=== PATIENT | female | born 1990 | race Caucasian/White ===

== ENCOUNTER 2021-06-24 05:01 | Inpatient (IN) | payer BC ==
[2021-06-24] MEDS ORDERED: Sodium Chloride 0.9% 10 ML Syringe FLUSH PRN (05:33)
[2021-06-24] MEDS ORDERED: Sodium Chloride 0.9% 10 ML SDV IV PRN (05:33)
[2021-06-24] MEDS ORDERED: Citric Acid/Sodium Citrate Solution 30 ML Cup PO ONE (05:33)
[2021-06-24] MEDS ORDERED: ceFAZolin 2 GM in Premix Bag 1 BAG IV ONE (05:33)
[2021-06-24] MEDS ORDERED: Sodium Chloride 0.9% 2.5 ML Syringe FLUSH PRN (05:33)
[2021-06-24] MEDS: Lactated Ringers 1,000 ML IV SCH ×3 (05:40→10:04)
[2021-06-24] MEDS ORDERED: Oxytocin/0.9 % Sodium Chloride 30 UNIT/500 ML BAG IV SCH (05:45)
[2021-06-24] MEDS ORDERED: fentaNYL 100 MCG/2 ML SDV ONE (07:31)
[2021-06-24] MEDS ORDERED: Morphine PF 10 MG/10 ML SDV ONE (07:32)
[2021-06-24] MEDS ORDERED: Oxytocin 10 Units/1 ML SDV ONE (07:36)
[2021-06-24] MEDS ORDERED: Ketorolac 30 MG/ML SDV ONE (07:36)
[2021-06-24] MEDS ORDERED: Ondansetron 4 MG/2 ML SDV ONE (07:36)
--- NOTE | 2021-06-24 07:51 | PCM.PREANE ---
Preanesthetic Assessment - Anesthesia/Transfusion/Family Hx Anesthesia History: Prior Anesthesia Without Reaction Family History of Anesthesia Reaction: No Transfusion History: No Prior Transfusion(s) - Review of Systems General: No Symptoms Pulmonary: No Symptoms Cardiovascular: No Symptoms Gastrointestinal: No Symptoms Neurological: No Symptoms Other: Reports: None - Physical Assessment NPO Status Date: 06/24/21 NPO Status Time: 00:00 Height: 5 ft Weight: 179 lb ASA Class: 2 Mental Status: Alert & Oriented x3 Airway Class: Mallampati = 3 Dentition: Reports: Normal Dentition ROM/Head Extension: Full Lungs: Clear to Auscultation, Normal Respiratory Effort Cardiovascular: Regular Rate, Regular Rhythm - Lab Values: Laboratory Last Values WBC 13.28 K/uL (4.0-11.0) H 06/24/21 05:25 RBC 4.19 M/uL (4.30-5.90) L 06/24/21 05:25 Hgb 11.8 g/dL (12.0-16.0) L 06/24/21 05:25 Hct 36.1 % (36.0-46.0) 06/24/21 05:25 MCV 86.2 fL (80.0-98.0) 06/24/21 05:25 MCH 28.2 pg (27.0-32.0) 06/24/21 05:25 MCHC 32.7 g/dL (31.0-37.0) 06/24/21 05:25 RDW Std Deviation 43.6 fl (28.0-62.0) 06/24/21 05:25 RDW Coeff of Mercedes 14 % (11.0-15.0) 06/24/21 05:25 Plt Count 284 K/uL (150-400) 06/24/21 05:25 MPV 9.80 fL (7.40-12.00) 06/24/21 05:25 Nucleated RBC % 0.0 /100WBC 06/24/21 05:25 Nucleated RBCs # 0 K/uL 06/24/21 05:25 Blood Type O NEGATIVE 06/24/21 05:25 Antibody Screen POSITIVE 06/24/21 05:25 Antibody Identification Anti-D 06/24/21 05:25 - Allergies Allergies/Adverse Reactions: Allergies Allergy/AdvReac Type Severity Reaction Status Date / Time No Known Allergies Allergy Verified 06/18/21 08:18 - Blood Blood Available: Yes Product(s) Available: PRBC, FFP, Platelets - Anesthesia Plan Pre-Op Medication Ordered: None - Acknowledgements Anesthesia Type Planned: Spinal Pt an Appropriate Candidate for the Planned Anesthesia: Yes Alternatives and Risks of Anesthesia Discussed w Pt/Guardian: Yes Pt/Guardian Understands and Agrees with Anesthesia Plan: Yes PreAnesthesia Questionnaire - Past Health History Medical/Surgical History: Denies Medical/Surgical History HEENT History: Reports: Other (See Below) Other HEENT History: upper retainer permanent for front teeth gap Cardiovascular History: Reports: None Respiratory History: Reports: Other (See Below) Other Respiratory History: 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, not present any longer Gastrointestinal History: Reports: Hemorrhoids, Other (See Below) Other Gastrointestinal History: hx of hemorrhoid not current Genitourinary History: Reports: None CHIEF OPERATING OFFICER History: Reports: , Other (See Below) Other OB/BYN History: hx of abnormal pap smear Musculoskeletal History: Reports: Fracture, Other (See Below) Other Musculoskeletal History: hip dysplagia, hx of fx left upper arm as a child Neurological History: Reports: Head Trauma, Seizure, Other (See Below) Other Neuro History: seizure as a child, dropped on head prior to seizure Psychiatric History: Reports: Other (See Below) Other Psychiatric History: dyslexia. Endocrine/Metabolic History: Reports: Diabetes, Gestational Hematologic History: Reports: None Immunologic History: Reports: None Oncologic (Cancer) History: Reports: None Dermatologic History: Reports: Other (See Below) Other Dermatologic History: shingles at age 9 y.o. - Infectious Disease History Infectious Disease History: Reports: Chicken Pox, Human Papilloma Virus (HPV), Shingles - Past Surgical History Head Surgeries/Procedures: Reports: None HEENT Surgical History: Reports: Oral Surgery, Other (See Below) Other HEENT Surgeries/Procedures: [place] teeth removal, and relignment of one adult tooth Cardiovascular Surgical History: Reports: None Respiratory Surgical History: Reports: None GI Surgical History: Reports: None Female Surgical History: Reports: None Endocrine Surgical History: Reports: None Neurological Surgical History: Reports: None Musculoskeletal Surgical History: Reports: None Oncologic Surgical History: Reports: None Dermatological Surgical History: Reports: None - SUBSTANCE USE Tobacco Use Status *Q: Never Tobacco User Second Hand Smoke Exposure: No Recreational Drug Use History: No - HOME MEDS Home Medications: Home Meds Pnv No.95/Ferrous Fum/Folic AC [ Vitamin Tablet] 1 tab PO DAILY 06/18/21 [History] - CURRENT (IN HOUSE) MEDS Current Meds: Current Medications Oxytocin/Sodium Chloride (Oxytocin 30 Unit/500 Ml-Ns) 30 unit in 500 mls @ 250 mls/hr IV TITRATE EILEEN Lactated Ringer's (Ringers, Lactated) 1,000 mls @ 500 mls/hr IV BOLUS EILEEN Last Admin: 06/24/21 06:50 Dose: 999 mls/hr Documented by: Sodium Chloride (Sodium Chloride 0.9% 10 Ml Syringe) 10 ml FLUSH ASDIRECTED PRN PRN Reason: Keep Vein Open Sodium Chloride (Sodium Chloride 0.9% 2.5 Ml Syringe) 2.5 ml FLUSH ASDIRECTED PRN PRN Reason: Keep Vein Open Sodium Chloride (Sodium Chloride 0.9% 10 Ml Sdv) 10 ml IV ASDIRECTED PRN PRN Reason: IV Use Discontinued Medications Citric Acid/Sodium Citrate (Citric Acid/Sodium Citrate Solution 30 Ml Cup) 30 ml PO ONETIME ONE Stop: 06/24/21 05:34 Fentanyl (Fentanyl 100 Mcg/2 Ml Sdv) Confirm Administered Dose 100 mcg .ROUTE .STK-MED ONE Stop: 06/24/21 07:32 Cefazolin Sodium/Dextrose 2 gm (/ Premix) 50 mls @ 100 mls/hr IV ONETIME ONE Stop: 06/24/21 06:02 Ketorolac Tromethamine (Ketorolac 30 Mg/Ml Sdv) Confirm Administered Dose 30 mg .ROUTE .STK-MED ONE Stop: 06/24/21 07:37 Miscellaneous Medication (Phenylephrine Hcl In 0.9% Nacl 1 Mg/10 Ml Syringe) Confirm Administered Dose 1 mg .ROUTE .STK-MED ONE Stop: 06/24/21 07:37 Morphine Sulfate (Morphine Pf 10 Mg/10 Ml Sdv) Confirm Administered Dose 10 mg .ROUTE .STK-MED ONE Stop: 06/24/21 07:33 Ondansetron HCl (Ondansetron 4 Mg/2 Ml Sdv) Confirm Administered Dose 4 mg .ROUTE .STK-MED ONE Stop: 06/24/21 07:37 Oxytocin (Oxytocin 10 Units/1 Ml Sdv) Confirm Administered Dose 30 unit .ROUTE .[facility]-MED ONE Stop: 06/24/21 07:37
[2021-06-24] MEDS ORDERED: ceFAZolin 1 GM Vial ONE ×2 (07:52→12:30)
--- NOTE | 2021-06-24 09:24 | PCM.LDHP ---
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 also c/b Rh negative (received rhogam at 28wGA), diet controlled GDM, and abnormal [place] screen (high probability of DiGeorges Syndrome), declined confirmatory testing. Otherwise, patient is o-, abs screen neg, RI, HepBsAg neg, HIV neg, RPR NR, GC/Chlam neg, GBS neg - Related Data Allergies/Adverse Reactions: Allergies Allergy/AdvReac Type Severity Reaction Status Date / Time No Known Allergies Allergy Verified 06/18/21 08:18 Home Medications: Home Meds Pnv No.95/Ferrous Fum/Folic AC [ Vitamin Tablet] 1 tab PO DAILY 06/18/21 [History] Past Medical History - Past Health History Medical/Surgical History: Denies Medical/Surgical History HEENT History: Reports: Other (See Below) Other HEENT History: upper retainer permanent for front teeth gap Cardiovascular History: Reports: None Respiratory History: Reports: Other (See Below) Other Respiratory History: 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, not present any longer Gastrointestinal History: Reports: Hemorrhoids, Other (See Below) Other Gastrointestinal History: hx of hemorrhoid not current Genitourinary History: Reports: None GIS ADMINISTRATOR History: Reports: , Other (See Below) Other OB/BYN History: hx of abnormal pap smear Musculoskeletal History: Reports: Fracture, Other (See Below) Other Musculoskeletal History: hip dysplagia, hx of fx left upper arm as a child Neurological History: Reports: Head Trauma, Seizure, Other (See Below) Other Neuro History: seizure as a child, dropped on head prior to seizure Psychiatric History: Reports: Other (See Below) Other Psychiatric History: dyslexia. Endocrine/Metabolic History: Reports: Diabetes, Gestational Hematologic History: Reports: None Immunologic History: Reports: None Oncologic (Cancer) History: Reports: None Dermatologic History: Reports: Other (See Below) Other Dermatologic History: shingles at age 9 y.o. - Infectious Disease History Infectious Disease History: Reports: Chicken Pox, Human Papilloma Virus (HPV), Shingles - Past Surgical History Head Surgeries/Procedures: Reports: None HEENT Surgical History: Reports: Oral Surgery, Other (See Below) Other HEENT Surgeries/Procedures: [place] teeth removal, and relignment of one adult tooth Cardiovascular Surgical History: Reports: None Respiratory Surgical History: Reports: None GI Surgical History: Reports: None Female Surgical History: Reports: None Endocrine Surgical History: Reports: None Neurological Surgical History: Reports: None Musculoskeletal Surgical History: Reports: None Oncologic Surgical History: Reports: None Dermatological Surgical History: Reports: None Social & Family History - Family History Family Medical History: No Pertinent Family History - Tobacco Use Tobacco Use Status *Q: Never Tobacco User Second Hand Smoke Exposure: No - Caffeine Use Caffeine Use: Reports: Coffee Caffeine Use Comment: cup of coffee here and there - Recreational Drug Use Recreational Drug Use: No Drug Use in Last 12 Months: No H&P Review of Systems - Review of Systems: Review Of Systems: See Below General: Reports: No Symptoms HEENT: Reports: No Symptoms Pulmonary: Reports: No Symptoms Cardiovascular: Reports: No Symptoms Gastrointestinal: Reports: No Symptoms Genitourinary: Reports: No Symptoms Musculoskeletal: Reports: No Symptoms Skin: Reports: No Symptoms Psychiatric: Reports: No Symptoms Neurological: Reports: No Symptoms Hematologic/Lymphatic: Reports: No Symptoms Immunologic: Reports: No Symptoms L&D Exam - Exam Exam: See Below - Vital Signs Weight: 81.193 kg - OB Specific Contraction Intensity: Irritability Movement: Active Heart Tones: Present Heart Rate (FHR) Variability: Moderate (6-25 bpm) Presentation: Vertex - Exam General: Alert, Oriented Lungs: Normal Respiratory Effort Cardiovascular: Regular Rate GI/Abdominal Exam: Soft, Non-Tender Extremities: Normal Inspection Psychiatric: Alert, Normal Affect, Normal Mood - Patient Data Lab Results Last 24 hrs: Laboratory Results - last 24 hr 06/24/21 06/24/21 Range/Units 05:25 05:25 WBC 13.28 H (4.0-11.0) K/uL RBC 4.19 L (4.30-5.90) M/uL Hgb 11.8 L (12.0-16.0) g/dL Hct 36.1 (36.0-46.0) % MCV 86.2 (80.0-98.0) fL MCH 28.2 (27.0-32.0) pg MCHC 32.7 (31.0-37.0) g/dL RDW Std Deviation 43.6 (28.0-62.0) fl RDW Coeff of Mercedes 14 (11.0-15.0) % Plt Count 284 (150-400) K/uL MPV 9.80 (7.40-12.00) fL Nucleated RBC % 0.0 /100WBC Nucleated RBCs # 0 K/uL Blood Type O NEGATIVE Antibody Screen POSITIVE Antibody Identification Anti-D Result Diagrams: 06/24/21 05:25 - Problem List (1) Term SNOMED Code(s): 49886916 ICD Code: Z34.90 - ENCNTR FOR SUPRVSN OF NORMAL , UNSP, UNSP TRIMESTER Status: Acute Priority: High Current Visit: Yes (2) Multiple epiphyseal dysplasia SNOMED Code(s): 58623124 ICD Code: Q78.8 - OTHER SPECIFIED OSTEOCHONDRODYSPLASIAS Status: Acute Priority: High Current Visit: Yes (3) Gestational diabetes mellitus (GDM) affecting first SNOMED Code(s): 74491489971155 ICD Code: O24.419 - GESTATIONAL DIABETES MELLITUS IN , UNSP CONTROL Status: Acute Priority: High Current Visit: Yes Problem List Initiated/Reviewed/Updated: Yes Orders Last 24hrs: Active Orders 24 hr Category Date Time Status Patient Status [ADT] Routine ADT 06/24/21 05:33 Active Non Stress Test [RC] PER UNIT ROUTINE Care 06/24/21 05:33 Active Notify Provider Vital Signs [RC] PRN Care 06/24/21 09:00 Active Peripheral IV Care [RC] PRN Care 06/24/21 05:33 Active Procedure Site Prep Instruct [RC] ASDIRECTED Care 06/24/21 05:33 Active Up ad Debby [RC] ASDIRECTED Care 06/24/21 05:33 Active Verify Patient Consent Obtain [RC] ASDIRECTED Care 06/24/21 05:33 Active Vital Signs [RC] PER UNIT ROUTINE Care 06/24/21 05:33 Active RPR (SYPHILIS SERO) W/ RFLX [REF] Routine Lab 06/24/21 05:25 Received Lactated Ringers [Ringers, Lactated] 1,000 ml Med 06/24/21 05:45 Active IV BOLUS Oxytocin/0.9 % Sodium Chloride [Oxytocin 30 Unit/500 ML Med 06/24/21 05:45 Active -NS] 30 unit in 500 ml IV TITRATE Sodium Chloride 0.9% [Normal Saline] Med 06/24/21 05:33 Active 10 ml IV ASDIRECTED PRN Sodium Chloride 0.9% [Saline Flush] Med 06/24/21 05:33 Active 10 ml FLUSH ASDIRECTED PRN Sodium Chloride 0.9% [Saline Flush] Med 06/24/21 05:33 Active 2.5 ml FLUSH ASDIRECTED PRN Peripheral IV Insertion Adult [OM.PC] Routine Oth 06/24/21 05:33 Ordered Schedule Procedure [COMM] Per Unit Routine Oth 06/24/21 05:33 Ordered Resuscitation Status Routine Resus Stat 06/24/21 05:33 Ordered Medication Orders Oxytocin/Sodium Chloride (Oxytocin 30 Unit/500 Ml-Ns) 30 unit in 500 mls @ 250 mls/hr IV TITRATE EILEEN Lactated Ringer's (Ringers, Lactated) 1,000 mls @ 500 mls/hr IV BOLUS EILEEN Last Admin: 06/24/21 06:50 Dose: 999 mls/hr Documented by: Infusion: 06/24/21 06:41 Dose: 999 mls/hr Documented by: Admin: 06/24/21 05:40 Dose: 999 mls/hr Documented by: JAMES Sodium Chloride (Sodium Chloride 0.9% 10 Ml Syringe) 10 ml FLUSH ASDIRECTED PRN PRN Reason: Keep Vein Open Sodium Chloride (Sodium Chloride 0.9% 2.5 Ml Syringe) 2.5 ml FLUSH ASDIRECTED PRN PRN Reason: Keep Vein Open Sodium Chloride (Sodium Chloride 0.9% 10 Ml Sdv) 10 ml IV ASDIRECTED PRN PRN Reason: IV Use Assessment/Plan Comment:: 31yo at 39w2d [place] admitted for scheduled 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
[2021-06-24] MEDS ORDERED: ePHEDrine 50 MG/ML SDV IVPUSH PRN (11:43)
[2021-06-24] MEDS ORDERED: fentaNYL 100 MCG/2 ML SDV IVPUSH PRN (11:43)
[2021-06-24] MEDS ORDERED: diphenhydrAMINE 50 MG/ML SDV IVPUSH PRN ×2 (11:43→13:45)
[2021-06-24] MEDS ORDERED: Nalbuphine 10 MG/1 ML Vial IVPUSH PRN (11:43)
[2021-06-24] MEDS ORDERED: Acetaminophen/oxyCODONE 325-5 MG Tab PO PRN ×2 (11:43→13:45)
[2021-06-24] MEDS ORDERED: Ondansetron 4 MG/2 ML SDV IVPUSH PRN (11:43)
[2021-06-24] MEDS ORDERED: Naloxone 0.4 MG/ML Syringe IVPUSH PRN (11:43)
--- NOTE | 2021-06-24 13:38 | PCM.DEL ---
L & D Note - General Info Date of Service: 06/24/21 Mother's Due Date: 06/29/21 - Delivery Note Delivery Outcome: Livebirth Delivery Method: Primary Presentation: Vertex Nuchal Cord: Reduced Anesthesia Type: Spinal Amniotic Fluid Description: Clear Laceration: None Placenta: Intact, Spontaneous Cord: 3 Vessels Estimated Blood Loss: 800 Resuscitation Needed: No Score 1 min: 8 Score 5 min: 9 Delivery Comments (Free Text/Narrative):: 31yo G1 now P1 s/p uncomplicated PLTCS at 39w2d [place] secondary to Multiple Epiphyseal Dysplasia Significant history also include diet controlled GDM and Rh negative. Delivery details: Male infant Weight 7'10'' Apgars: 8/9 EBL: 800cc - General Info Date of Service: 06/24/21 Admission Dx/Problem (Free Text): Patient Status Order with Admit Dx/Problem 06/24/21 05:33 Patient Status [ADT] Routine Admission Diagnosis/Problem Admission Diagnosis/Problem Functional Status: Reports: Pain Controlled - Review of Systems General: Reports: No Symptoms HEENT: Reports: No Symptoms Pulmonary: Reports: No Symptoms Cardiovascular: Reports: No Symptoms Gastrointestinal: Reports: No Symptoms Genitourinary: Reports: No Symptoms Musculoskeletal: Reports: No Symptoms Skin: Reports: No Symptoms Neurological: Reports: No Symptoms Psychiatric: Reports: No Symptoms - Patient Data Weight - Most Recent: 81.193 kg I&O - Last 24 Hours: Intake & Output 06/23/21 06/24/21 06/24/21 22:59 06:59 14:59 Intake Total 1000 Balance 1000 Lab Results Last 24 Hours: Laboratory Results - last 24 hr 06/24/21 06/24/21 Range/Units 05:25 05:25 WBC 13.28 H (4.0-11.0) K/uL RBC 4.19 L (4.30-5.90) M/uL Hgb 11.8 L (12.0-16.0) g/dL Hct 36.1 (36.0-46.0) % MCV 86.2 (80.0-98.0) fL MCH 28.2 (27.0-32.0) pg MCHC 32.7 (31.0-37.0) g/dL RDW Std Deviation 43.6 (28.0-62.0) fl RDW Coeff of Mercedes 14 (11.0-15.0) % Plt Count 284 (150-400) K/uL MPV 9.80 (7.40-12.00) fL Nucleated RBC % 0.0 /100WBC Nucleated RBCs # 0 K/uL Blood Type O NEGATIVE Antibody Screen POSITIVE Antibody Identification Anti-D Med Orders - Current: Current Medications Diphenhydramine HCl (Diphenhydramine 50 Mg/Ml Sdv) 12.5 mg IVPUSH Q2H PRN PRN Reason: Itching Ephedrine Sulfate (Ephedrine 50 Mg/Ml Sdv) 10 mg IVPUSH Q5M PRN PRN Reason: Hypotension Fentanyl (Fentanyl 100 Mcg/2 Ml Sdv) 50 mcg IVPUSH Q1H PRN PRN Reason: Pain (severe 7-10) Oxytocin/Sodium Chloride (Oxytocin 30 Unit/500 Ml-Ns) 30 unit in 500 mls @ 250 mls/hr IV TITRATE EILEEN Lactated Ringer's (Ringers, Lactated) 1,000 mls @ 500 mls/hr IV BOLUS [facility] Last Admin: 06/24/21 10:04 Dose: 150 mls/hr Documented by: Nalbuphine HCl (Nalbuphine 10 Mg/1 Ml Vial) 5 mg IVPUSH ASDIRECTED PRN PRN Reason: Itching Naloxone HCl (Naloxone 0.4 Mg/Ml Syringe) 0.1 mg IVPUSH ONETIME PRN PRN Reason: Respiratory Depression Stop: 06/25/21 11:44 Ondansetron HCl (Ondansetron 4 Mg/2 Ml Sdv) 4 mg IVPUSH Q6H PRN PRN Reason: Nausea Oxycodone/Acetaminophen (Acetaminophen/Oxycodone 325-5 Mg Tab) 2 tab PO Q6H PRN PRN Reason: Pain (moderate 4-6) Sodium Chloride (Sodium Chloride 0.9% 10 Ml Syringe) 10 ml FLUSH ASDIRECTED PRN PRN Reason: Keep Vein Open Sodium Chloride (Sodium Chloride 0.9% 2.5 Ml Syringe) 2.5 ml FLUSH ASDIRECTED PRN PRN Reason: Keep Vein Open Sodium Chloride (Sodium Chloride 0.9% 10 Ml Sdv) 10 ml IV ASDIRECTED PRN PRN Reason: IV Use Discontinued Medications Cefazolin Sodium (Cefazolin 1 Gm Vial) Confirm Administered Dose 2 gm .ROUTE .STK-MED ONE Stop: 06/24/21 07:53 Cefazolin Sodium (Cefazolin 1 Gm Vial) Confirm Administered Dose 2 gm .ROUTE .STK-MED ONE Stop: 06/24/21 12:31 Citric Acid/Sodium Citrate (Citric Acid/Sodium Citrate Solution 30 Ml Cup) 30 ml PO ONETIME ONE Stop: 06/24/21 05:34 Fentanyl (Fentanyl 100 Mcg/2 Ml Sdv) Confirm Administered Dose 100 mcg .ROUTE .STK-MED ONE Stop: 06/24/21 07:32 Cefazolin Sodium/Dextrose 2 gm (/ Premix) 50 mls @ 100 mls/hr IV ONETIME ONE Stop: 06/24/21 06:02 Ketorolac Tromethamine (Ketorolac 30 Mg/Ml Sdv) Confirm Administered Dose 30 mg .ROUTE .STK-MED ONE Stop: 06/24/21 07:37 Miscellaneous Medication (Phenylephrine Hcl In 0.9% Nacl 1 Mg/10 Ml Syringe) Confirm Administered Dose 1 mg .ROUTE .STK-MED ONE Stop: 06/24/21 07:37 Morphine Sulfate (Morphine Pf 10 Mg/10 Ml Sdv) Confirm Administered Dose 10 mg .ROUTE .STK-MED ONE Stop: 06/24/21 07:33 Ondansetron HCl (Ondansetron 4 Mg/2 Ml Sdv) Confirm Administered Dose 4 mg .ROUTE .STK-MED ONE Stop: 06/24/21 07:37 Oxytocin (Oxytocin 10 Units/1 Ml Sdv) Confirm Administered Dose 30 unit .ROUTE .STK-MED ONE Stop: 06/24/21 07:37 - Exam General: Alert, Oriented Lungs: Normal Respiratory Effort Cardiovascular: Regular Rate GI/Abdominal Exam: Soft, Non-Tender Extremities: Normal Inspection Psy/Mental Status: Alert, Normal Affect, Normal Mood - Problem List & Annotations (1) Term SNOMED Code(s): 86087575 Code(s): Z34.90 - ENCNTR FOR SUPRVSN OF NORMAL , UNSP, UNSP TRIMESTER Status: Acute Priority: High Current Visit: Yes (2) Multiple epiphyseal dysplasia SNOMED Code(s): 65775227 Code(s): Q78.8 - OTHER SPECIFIED OSTEOCHONDRODYSPLASIAS Status: Acute Priority: High Current Visit: Yes (3) Gestational diabetes mellitus (GDM) affecting first SNOMED Code(s): 79614198240675 Code(s): O24.419 - GESTATIONAL DIABETES MELLITUS IN , UNSP CONTROL Status: Acute Priority: High Current Visit: Yes (4) Delivery by section of full-term infant SNOMED Code(s): 030584285, 629538757 Code(s): O82 - ENCOUNTER FOR DELIVERY WITHOUT INDICATION Status: Acute Current Visit: Yes - Problem List Review Problem List Initiated/Reviewed/Updated: Yes - My Orders Last 24 Hours: My Active Orders 06/24/21 05:25 RPR (SYPHILIS SERO) W/ RFLX [REF] Routine 06/24/21 05:33 Patient Status [ADT] Routine Peripheral IV Care [RC] PRN Up ad Debby [RC] ASDIRECTED Vital Signs [RC] PER UNIT ROUTINE Sodium Chloride 0.9% [Normal Saline] 10 ml IV ASDIRECTED PRN Sodium Chloride 0.9% [Saline Flush] 10 ml FLUSH ASDIRECTED PRN Sodium Chloride 0.9% [Saline Flush] 2.5 ml FLUSH ASDIRECTED PRN Peripheral IV Insertion Adult [OM.PC] Routine Schedule Procedure [COMM] Per Unit Routine Resuscitation Status Routine 06/24/21 05:45 Lactated Ringers [Ringers, Lactated] 1,000 ml IV BOLUS Oxytocin/0.9 % Sodium Chloride [Oxytocin 30 Unit/500 ML-NS] 30 unit in 500 ml IV TITRATE 06/24/21 09:00 Notify Provider Vital Signs [RC] PRN - Assessment Assessment:: 31yo G1 now P1 s/p uncomplicated PLTCS at 39w2d [place] secondary to Multiple Epiphyseal Dysplasia Significant history also include diet controlled GDM and Rh negative - Plan Plan:: P: Routine Monitoring blood glucose Rhogam 72hr after delivery if indicated.
[2021-06-24] MEDS ORDERED: Methylergonovine 0.2 MG/1 ML Amp IM PRN (13:45)
[2021-06-24] MEDS ORDERED: Misoprostol 200 MCG Tab RECTAL PRN (13:45)
[2021-06-24] MEDS ORDERED: Oxytocin 10 Units/1 ML SDV IM PRN (13:45)
[2021-06-24] MEDS ORDERED: Lactated Ringers 1,000 ML IV SCH (13:45)
[2021-06-24] MEDS ORDERED: Bisacodyl 10 MG Supp RECTAL PRN (13:45)
[2021-06-24] MEDS ORDERED: Ketorolac 30 MG/ML SDV IVPUSH SCH (13:45)
[2021-06-24] MEDS ORDERED: Lanolin 100% Cream 7 GM Tube TOP PRN (13:45)
[2021-06-24] MEDS ORDERED: Tranexamic Acid 1,000 MG in Sodium Chloride 0.9% 100 ML IV PRN (13:45)
[2021-06-24] MEDS ORDERED: Oxytocin/Lactated Ringers 30 UNIT/500 ML BAG IV SCH (13:45)
[2021-06-24] MEDS: Ondansetron 4 MG/2 ML SDV IVPUSH PRN ×2 (16:41→21:02)
[2021-06-24] MEDS ORDERED: Promethazine 25 MG/ML SDV IM ONE (17:25)
[2021-06-24] MEDS: Ketorolac 30 MG/ML SDV IVPUSH SCH (19:44)
[2021-06-24] MEDS: Docusate Sodium 100 MG Cap PO SCH (21:07)
[2021-06-25] MEDS: Ketorolac 30 MG/ML SDV IVPUSH SCH ×4 (02:20→22:38)
--- NOTE | 2021-06-25 07:39 | PCM.PNPP ---
- General Info Date of Service: 06/25/21 Admission Dx/Problem (Free Text): Patient Status Order with Admit Dx/Problem 06/24/21 05:33 Patient Status [ADT] Routine Admission Diagnosis/Problem Admission Diagnosis/Problem Functional Status: Reports: Pain Controlled, Tolerating Diet, Ambulating, Urinating - Review of Systems General: Reports: No Symptoms HEENT: Reports: No Symptoms Pulmonary: Reports: No Symptoms Cardiovascular: Reports: No Symptoms Gastrointestinal: Reports: No Symptoms Genitourinary: Reports: No Symptoms Musculoskeletal: Reports: No Symptoms Skin: Reports: No Symptoms Neurological: Reports: No Symptoms Psychiatric: Reports: No Symptoms - General Info Date of Service: 06/25/21 - Patient Data Vital Signs - Most Recent: Last Vital Signs Temp 97.1 F 06/24/21 19:40 Pulse 98 06/24/21 22:00 Resp 16 06/24/21 21:00 BP 145/94 H 06/24/21 19:40 Pulse Ox 99 06/24/21 22:00 Weight - Most Recent: 179 lb I&O - Last 24 Hours: Intake & Output 06/24/21 06/25/21 06/25/21 22:59 06:59 14:59 Intake Total 1000 Output Total 275 Balance -275 1000 Lab Results - Last 24 Hours: Laboratory Results - last 24 hr 06/24/21 06/24/21 06/25/21 Range/Units 05:25 05:25 04:45 Hgb 9.1 L (12.0-16.0) g/dL Hct 28.0 L (36.0-46.0) % Antibody Identification Anti-D Screen NEGATIVE (NEGATIVE) RhIG Candidate? YES Rhogam Indicated YES, BABY RH POS H Med Orders - Current: Current Medications Bisacodyl (Bisacodyl 10 Mg Supp) 10 mg RECTAL ONETIME PRN PRN Reason: Constipation Diphenhydramine HCl (Diphenhydramine 50 Mg/Ml Sdv) 12.5 mg IVPUSH Q2H PRN PRN Reason: Itching Diphenhydramine HCl (Diphenhydramine 50 Mg/Ml Sdv) 25 mg IVPUSH Q6H PRN PRN Reason: Itching or Nausea Docusate Sodium (Docusate Sodium 100 Mg Cap) 100 mg PO BID EILEEN Last Admin: 06/24/21 21:07 Dose: 100 mg Documented by: Emollient Ointment (Lanolin 100% Cream 7 Gm Tube) 0 gm TOP ASDIRECTED PRN PRN Reason: Sore Nipples Ephedrine Sulfate (Ephedrine 50 Mg/Ml Sdv) 10 mg IVPUSH Q5M PRN PRN Reason: Hypotension Fentanyl (Fentanyl 100 Mcg/2 Ml Sdv) 50 mcg IVPUSH Q1H PRN PRN Reason: Pain (severe 7-10) Oxytocin/Sodium Chloride (Oxytocin 30 Unit/500 Ml-Ns) 30 unit in 500 mls @ 250 mls/hr IV TITRATE EILEEN Lactated Ringer's (Ringers, Lactated) 1,000 mls @ 500 mls/hr IV BOLUS [facility] Last Admin: 06/24/21 10:04 Dose: 150 mls/hr Documented by: Lactated Ringer's (Ringers, Lactated) 1,000 mls @ 125 mls/hr IV ASDIRECTED [facility] Last Admin: 06/24/21 15:55 Dose: 125 mls/hr Documented by: Oxytocin/Lactated Ringer's (Pitocin In Lr 30 Units/500 Ml) 30 unit in 500 mls @ 2 mls/hr IV TITRATE [facility]; Protocol Tranexamic Acid 1,000 mg/ (Sodium Chloride) 110 mls @ 660 mls/hr IV ONETIME PRN PRN Reason: Bleeding Ibuprofen (Ibuprofen 800 Mg Tab) 800 mg PO Q8H PRN PRN Reason: mild pain or fever Ketorolac Tromethamine (Ketorolac 30 Mg/Ml Sdv) 30 mg IVPUSH Q6H [facility] Stop: 06/25/21 19:31 Last Admin: 06/25/21 02:20 Dose: 30 mg Documented by: Methylergonovine Maleate (Methylergonovine 0.2 Mg/1 Ml Amp) 0.2 mg IM ONETIME PRN PRN Reason: Excessive Vaginal Bleeding Misoprostol (Misoprostol 200 Mcg Tab) 1,000 mcg RECTAL ONETIME PRN PRN Reason: excessive bleeding Nalbuphine HCl (Nalbuphine 10 Mg/1 Ml Vial) 5 mg IVPUSH ASDIRECTED PRN PRN Reason: Itching Naloxone HCl (Naloxone 0.4 Mg/Ml Syringe) 0.1 mg IVPUSH ONETIME PRN PRN Reason: Respiratory Depression Stop: 06/25/21 11:44 Ondansetron HCl (Ondansetron 4 Mg/2 Ml Sdv) 4 mg IVPUSH Q6H PRN PRN Reason: Nausea Ondansetron HCl (Ondansetron 4 Mg/2 Ml Sdv) 4 mg IVPUSH Q4H PRN PRN Reason: Nausea/Vomiting Last Admin: 06/24/21 21:02 Dose: 4 mg Documented by: Oxycodone/Acetaminophen (Acetaminophen/Oxycodone 325-5 Mg Tab) 2 tab PO Q6H PRN PRN Reason: Pain (moderate 4-6) Oxycodone/Acetaminophen (Acetaminophen/Oxycodone 325-5 Mg Tab) 1 tab PO Q4H PRN PRN Reason: Pain (severe 7-10) Oxycodone/Acetaminophen (Acetaminophen/Oxycodone 325-5 Mg Tab) 2 tab PO Q4H PRN PRN Reason: Pain (severe 7-10) Oxytocin (Oxytocin 10 Units/1 Ml Sdv) 10 unit IM ASDIRECTED PRN PRN Reason: Excessive Vaginal Bleeding Sodium Chloride (Sodium Chloride 0.9% 10 Ml Syringe) 10 ml FLUSH ASDIRECTED PRN PRN Reason: Keep Vein Open Sodium Chloride (Sodium Chloride 0.9% 2.5 Ml Syringe) 2.5 ml FLUSH ASDIRECTED PRN PRN Reason: Keep Vein Open Sodium Chloride (Sodium Chloride 0.9% 10 Ml Sdv) 10 ml IV ASDIRECTED PRN PRN Reason: IV Use Discontinued Medications Cefazolin Sodium (Cefazolin 1 Gm Vial) Confirm Administered Dose 2 gm .ROUTE .STK-MED ONE Stop: 06/24/21 07:53 Cefazolin Sodium (Cefazolin 1 Gm Vial) Confirm Administered Dose 2 gm .ROUTE .STK-MED ONE Stop: 06/24/21 12:31 Citric Acid/Sodium Citrate (Citric Acid/Sodium Citrate Solution 30 Ml Cup) 30 ml PO ONETIME ONE Stop: 06/24/21 05:34 Fentanyl (Fentanyl 100 Mcg/2 Ml Sdv) Confirm Administered Dose 100 mcg .ROUTE .STK-MED ONE Stop: 06/24/21 07:32 Cefazolin Sodium/Dextrose 2 gm (/ Premix) 50 mls @ 100 mls/hr IV ONETIME ONE Stop: 06/24/21 06:02 Ketorolac Tromethamine (Ketorolac 30 Mg/Ml Sdv) Confirm Administered Dose 30 mg .ROUTE .STK-MED ONE Stop: 06/24/21 07:37 Ketorolac Tromethamine (Ketorolac 30 Mg/Ml Sdv) 30 mg IVPUSH Q6H [facility] Stop: 06/25/21 13:46 Miscellaneous Medication (Phenylephrine Hcl In 0.9% Nacl 1 Mg/10 Ml Syringe) Confirm Administered Dose 1 mg .ROUTE .STK-MED ONE Stop: 06/24/21 07:37 Morphine Sulfate (Morphine Pf 10 Mg/10 Ml Sdv) Confirm Administered Dose 10 mg .ROUTE .STK-MED ONE Stop: 06/24/21 07:33 Ondansetron HCl (Ondansetron 4 Mg/2 Ml Sdv) Confirm Administered Dose 4 mg .ROUTE .STK-MED ONE Stop: 06/24/21 07:37 Oxytocin (Oxytocin 10 Units/1 Ml Sdv) Confirm Administered Dose 30 unit .ROUTE .STK-MED ONE Stop: 06/24/21 07:37 Promethazine HCl (Promethazine 25 Mg/Ml Sdv) 12.5 mg IM ONETIME ONE Stop: 06/24/21 17:26 Last Admin: 06/24/21 18:15 Dose: 12.5 mg Documented by: - Infant Interaction Disposition, : in Room with Family Infant Interaction: Other (see below) ( holding ) Feeding: Breastfed Infant; Nursed Well Support Person: - Recovery Exam Fundal Tone: Firm Fundal Level: 3 Fingerbreadths Below Umbilicus Fundal Placement: Midline Lochia Amount: Scant Lochia Color: Rubra/Red Perineum Description: Intact, Minimal Bruising/Swelling Episiotomy/Laceration: None Bladder Status: Indwelling Catheter in Place Urinary Elimination: Indwelling Catheter - Exam General: Alert, Oriented, Cooperative, No Acute Distress Lungs: Normal Respiratory Effort Cardiovascular: Regular Rate, Regular Rhythm GI/Abdominal Exam: Soft, Non-Tender Extremities: Normal Inspection, Normal Range of Motion, Non-Tender, Normal Capillary Refill Skin: Warm, Dry, Intact Wound/Incisions: Dressing Dry and Intact Neurological: No New Focal Deficit, Normal Speech, Normal Tone, Sensation Intact Psy/Mental Status: Alert, Normal Affect, Normal Mood - Problem List & Annotations (1) Delivery by section of full-term infant SNOMED Code(s): 063791865, 617080804 Code(s): O82 - ENCOUNTER FOR DELIVERY WITHOUT INDICATION Status: Acute Priority: High Current Visit: Yes - Problem List Review Problem List Initiated/Reviewed/Updated: Yes - Assessment Assessment:: 31yo G1 now P1 s/p uncomplicated PLTCS at 39w2d GA secondary to Multiple Epiphyseal Dysplasia Significant history also include diet controlled GDM and Rh negative - Plan Plan:: P: Routine Monitoring blood glucose Rhogam 72hr after delivery if indicated. PP Day 1 A: Doing well; ambulating, urinating, tolerating diet; pain well-controlled; no concerns/questions at this time. P: Continue with routine plan of care; Dr. Soliman updated.
[2021-06-25] MEDS: Docusate Sodium 100 MG Cap PO SCH ×2 (08:05→20:55)
[2021-06-25] MEDS: Acetaminophen/oxyCODONE 325-5 MG Tab PO PRN ×2 (16:41→22:47)
[2021-06-25] MEDS: Ibuprofen 800 MG Tab PO PRN (20:55)
[2021-06-26] MEDS: Ibuprofen 800 MG Tab PO PRN ×2 (04:28→12:30)
[2021-06-26] MEDS: Docusate Sodium 100 MG Cap PO SCH (08:35)
[2021-06-26] MEDS: Acetaminophen/oxyCODONE 325-5 MG Tab PO PRN (10:14)
--- NOTE | 2021-06-26 10:48 | PCM.PNPP ---
- General Info Date of Service: 06/26/21 Admission Dx/Problem (Free Text): Patient Status Order with Admit Dx/Problem 06/24/21 05:33 Patient Status [ADT] Routine Admission Diagnosis/Problem Admission Diagnosis/Problem Subjective Update: Adelaida is a 31 yo current PPD2 S/P uncomplicated to term NBM. O neg with RhoGam indicated, administered 06/26/2021, RI, GBS neg. Patient has no complaints or concerns at this time. Patient is breast and bottle feeding well, resting comfortably in bed with in FOB arms. Patient reports she is eating, voiding, ambulating independently and without difficulty. Patient denies any problems or concerns at this time except mild-moderate intermittent uterine cramping relieved with Percocet and Ibuprofen. Patient reports scant vaginal bleeding with no clots. Patient verbalizes her readiness to be discharged home today. BPs elevated from 130s/90s to 160s/90s. Functional Status: Reports: Pain Controlled, Tolerating Diet, Ambulating, Urinating - Review of Systems General: Reports: No Symptoms HEENT: Reports: No Symptoms Pulmonary: Reports: No Symptoms Cardiovascular: Reports: No Symptoms Gastrointestinal: Reports: No Symptoms Genitourinary: Reports: No Symptoms Musculoskeletal: Reports: No Symptoms Skin: Reports: No Symptoms Neurological: Reports: No Symptoms Psychiatric: Reports: No Symptoms - General Info Date of Service: 06/26/21 - Patient Data Vital Signs - Most Recent: Last Vital Signs Temp 98.4 F 06/26/21 10:18 Pulse 106 H 06/26/21 10:18 Resp 18 06/26/21 10:18 BP 167/91 H 06/26/21 10:18 Pulse Ox 96 06/26/21 08:00 Weight - Most Recent: 179 lb I&O - Last 24 Hours: Intake & Output 06/25/21 06/26/21 06/26/21 22:59 06:59 14:59 Intake Total 2 Balance 2 Lab Results - Last 24 Hours: Laboratory Results - last 24 hr 06/24/21 Range/Units 05:25 Screen NEGATIVE (NEGATIVE) RhIG Candidate? YES Rhogam Indicated YES, BABY RH POS H Med Orders - Current: Current Medications Bisacodyl (Bisacodyl 10 Mg Supp) 10 mg RECTAL ONETIME PRN PRN Reason: Constipation Diphenhydramine HCl (Diphenhydramine 50 Mg/Ml Sdv) 12.5 mg IVPUSH Q2H PRN PRN Reason: Itching Diphenhydramine HCl (Diphenhydramine 50 Mg/Ml Sdv) 25 mg IVPUSH Q6H PRN PRN Reason: Itching or Nausea Docusate Sodium (Docusate Sodium 100 Mg Cap) 100 mg PO BID [facility] Last Admin: 06/26/21 08:35 Dose: 100 mg Documented by: Emollient Ointment (Lanolin 100% Cream 7 Gm Tube) 0 gm TOP ASDIRECTED PRN PRN Reason: Sore Nipples Ephedrine Sulfate (Ephedrine 50 Mg/Ml Sdv) 10 mg IVPUSH Q5M PRN PRN Reason: Hypotension Fentanyl (Fentanyl 100 Mcg/2 Ml Sdv) 50 mcg IVPUSH Q1H PRN PRN Reason: Pain (severe 7-10) Oxytocin/Sodium Chloride (Oxytocin 30 Unit/500 Ml-Ns) 30 unit in 500 mls @ 250 mls/hr IV TITRATE [facility] Lactated Ringer's (Ringers, Lactated) 1,000 mls @ 500 mls/hr IV BOLUS [facility] Last Admin: 06/24/21 10:04 Dose: 150 mls/hr Documented by: Lactated Ringer's (Ringers, Lactated) 1,000 mls @ 125 mls/hr IV ASDIRECTED [facility] Last Admin: 06/24/21 15:55 Dose: 125 mls/hr Documented by: Oxytocin/Lactated Ringer's (Pitocin In Lr 30 Units/500 Ml) 30 unit in 500 mls @ 2 mls/hr IV TITRATE [facility]; Protocol Tranexamic Acid 1,000 mg/ (Sodium Chloride) 110 mls @ 660 mls/hr IV ONETIME PRN PRN Reason: Bleeding Ibuprofen (Ibuprofen 800 Mg Tab) 800 mg PO Q8H PRN PRN Reason: mild pain or fever Last Admin: 06/26/21 04:28 Dose: 800 mg Documented by: Methylergonovine Maleate (Methylergonovine 0.2 Mg/1 Ml Amp) 0.2 mg IM ONETIME PRN PRN Reason: Excessive Vaginal Bleeding Misoprostol (Misoprostol 200 Mcg Tab) 1,000 mcg RECTAL ONETIME PRN PRN Reason: excessive bleeding Nalbuphine HCl (Nalbuphine 10 Mg/1 Ml Vial) 5 mg IVPUSH ASDIRECTED PRN PRN Reason: Itching Ondansetron HCl (Ondansetron 4 Mg/2 Ml Sdv) 4 mg IVPUSH Q6H PRN PRN Reason: Nausea Ondansetron HCl (Ondansetron 4 Mg/2 Ml Sdv) 4 mg IVPUSH Q4H PRN PRN Reason: Nausea/Vomiting Last Admin: 06/24/21 21:02 Dose: 4 mg Documented by: Oxycodone/Acetaminophen (Acetaminophen/Oxycodone 325-5 Mg Tab) 2 tab PO Q6H PRN PRN Reason: Pain (moderate 4-6) Oxycodone/Acetaminophen (Acetaminophen/Oxycodone 325-5 Mg Tab) 1 tab PO Q4H PRN PRN Reason: Pain (severe 7-10) Last Admin: 06/26/21 10:14 Dose: 1 tab Documented by: Oxycodone/Acetaminophen (Acetaminophen/Oxycodone 325-5 Mg Tab) 2 tab PO Q4H PRN PRN Reason: Pain (severe 7-10) Oxytocin (Oxytocin 10 Units/1 Ml Sdv) 10 unit IM ASDIRECTED PRN PRN Reason: Excessive Vaginal Bleeding Sodium Chloride (Sodium Chloride 0.9% 10 Ml Syringe) 10 ml FLUSH ASDIRECTED PRN PRN Reason: Keep Vein Open Sodium Chloride (Sodium Chloride 0.9% 2.5 Ml Syringe) 2.5 ml FLUSH ASDIRECTED PRN PRN Reason: Keep Vein Open Sodium Chloride (Sodium Chloride 0.9% 10 Ml Sdv) 10 ml IV ASDIRECTED PRN PRN Reason: IV Use Discontinued Medications Cefazolin Sodium (Cefazolin 1 Gm Vial) Confirm Administered Dose 2 gm .ROUTE .STK-MED ONE Stop: 06/24/21 07:53 Cefazolin Sodium (Cefazolin 1 Gm Vial) Confirm Administered Dose 2 gm .ROUTE .STK-MED ONE Stop: 06/24/21 12:31 Citric Acid/Sodium Citrate (Citric Acid/Sodium Citrate Solution 30 Ml Cup) 30 ml PO ONETIME ONE Stop: 06/24/21 05:34 Fentanyl (Fentanyl 100 Mcg/2 Ml Sdv) Confirm Administered Dose 100 mcg .ROUTE .STK-MED ONE Stop: 06/24/21 07:32 Cefazolin Sodium/Dextrose 2 gm (/ Premix) 50 mls @ 100 mls/hr IV ONETIME ONE Stop: 06/24/21 06:02 Ketorolac Tromethamine (Ketorolac 30 Mg/Ml Sdv) Confirm Administered Dose 30 mg .ROUTE .STK-MED ONE Stop: 06/24/21 07:37 Ketorolac Tromethamine (Ketorolac 30 Mg/Ml Sdv) 30 mg IVPUSH Q6H [facility] Stop: 06/25/21 13:46 Ketorolac Tromethamine (Ketorolac 30 Mg/Ml Sdv) 30 mg IVPUSH Q6H [facility] Stop: 06/25/21 19:31 Last Admin: 06/25/21 22:38 Dose: Not Given Documented by: Miscellaneous Medication (Phenylephrine Hcl In 0.9% Nacl 1 Mg/10 Ml Syringe) Confirm Administered Dose 1 mg .ROUTE .STK-MED ONE Stop: 06/24/21 07:37 Morphine Sulfate (Morphine Pf 10 Mg/10 Ml Sdv) Confirm Administered Dose 10 mg .ROUTE .STK-MED ONE Stop: 06/24/21 07:33 Naloxone HCl (Naloxone 0.4 Mg/Ml Syringe) 0.1 mg IVPUSH ONETIME PRN PRN Reason: Respiratory Depression Stop: 06/25/21 11:44 Ondansetron HCl (Ondansetron 4 Mg/2 Ml Sdv) Confirm Administered Dose 4 mg .ROUTE .STK-MED ONE Stop: 06/24/21 07:37 Oxytocin (Oxytocin 10 Units/1 Ml Sdv) Confirm Administered Dose 30 unit .ROUTE .STK-MED ONE Stop: 06/24/21 07:37 Promethazine HCl (Promethazine 25 Mg/Ml Sdv) 12.5 mg IM ONETIME ONE Stop: 06/24/21 17:26 Last Admin: 06/24/21 18:15 Dose: 12.5 mg Documented by: - Interaction Disposition, : [place] in Room with Family Interaction: Not Interacting, Other (see below) (NBM in FOB arms.) Feeding: Bottle Fed Infant, Breastfed ; Nursed Well, Continues to Breastfeed, Encouraged to Breastfeed Support Person: - Recovery Exam Fundal Tone: Firm Fundal Level: 2 Fingerbreadths Below Umbilicus Fundal Placement: Midline Lochia Amount: Scant Lochia Color: Rubra/Red Perineum Description: Intact, Minimal Bruising/Swelling Episiotomy/Laceration: None () Bladder Status: Voiding Urinary Elimination: Voided - Exam General: Alert, Oriented HEENT: Pupils Equal, Pupils Reactive, Mucous Membr. Moist/[place] Neck: Supple Lungs: Clear to Auscultation, Normal Respiratory Effort Cardiovascular: Regular Rate, Regular Rhythm GI/Abdominal Exam: Normal Bowel Sounds, Soft, Non-Tender, No Organomegaly, No Distention Extremities: Normal Inspection, Normal Range of Motion, Non-Tender, No Pedal Edema, Normal Capillary Refill Skin: Warm, Dry, Intact Wound/Incisions: No Drainage Neurological: No New Focal Deficit Psy/Mental Status: Alert, Normal Affect, Normal Mood - Problem List & Annotations (1) Delivery by section of full-term SNOMED Code(s): 047725782, 553954525 Code(s): O82 - ENCOUNTER FOR DELIVERY WITHOUT INDICATION Status: Acute Priority: High Current Visit: Yes (2) hypertension SNOMED Code(s): 02953925, 70893133, 598611514 Code(s): O16.5 - UNSPECIFIED MATERNAL HYPERTENSION, COMP THE PUERPERIUM Status: Acute Priority: High Current Visit: Yes (3) Gestational diabetes mellitus (GDM) affecting first SNOMED Code(s): 45815929898061 Code(s): O24.419 - GESTATIONAL DIABETES MELLITUS IN , UNSP CONTROL Status: Acute Priority: High Current Visit: Yes (4) Lactating mother SNOMED Code(s): 449109242, 634731266 Code(s): Z39.1 - ENCOUNTER FOR CARE AND EXAMINATION OF LACTATING MOTHER Status: Acute Priority: High Current Visit: Yes - Problem List Review Problem List Initiated/Reviewed/Updated: Yes - Assessment Assessment:: 31yo G1 now P1 s/p uncomplicated PLTCS at 39w2d GA secondary to Multiple Epiphyseal Dysplasia Significant history also include diet controlled GDM and Rh negative - Plan Plan:: Plan to continue course. Hemodynamically stable, afebrile; hypertension noted 130s/90s - 160s/90s, maternal HR to 90s-110s. Dr. Soliman reviewed, does not desire to start anti-hypertensive medication at this time. Hemoglobin 9.1, start 1 tablet 150 mg iron supplementation BID x 4 weeks then decrease to tablet daily, F/U as indicated. Continue PO analgesia as ordered. Continue EBFing, eating, voiding, ambulating independently. Fasting FSBSs in am daily until discharge. Plan to discharge today with close cl [id number] of BP (2-5 days). RTO in 1 week for incision/BP check and in [address] Soliman agreeable with POC.
--- NOTE | 2021-06-26 11:12 | PCM.DCSUM1 ---
Discharge Summary - Hospital Course Free Text/Narrative:: Adelaida is a 31 yo current PPD2 S/P uncomplicated to term NBM. O neg with RhoGam indicated, administered 06/26/2021, RI, GBS neg. Patient has no complaints or concerns at this time. Patient is breast and bottle feeding well, resting comfortably in bed with in FOB arms. Patient reports she is eating, voiding, ambulating independently and without difficulty. Patient denies any problems or concerns at this time except mild-moderate intermittent uterine cramping relieved with Percocet and Ibuprofen. Patient reports scant vaginal bleeding with no clots. Patient verbalizes her readiness to be discharged home today. BPs elevated from 130s/90s to 160s/90s. Diagnosis: Stroke: No - Discharge Data Discharge Date: 06/26/21 Discharge Disposition: Home, Self-Care 01 Condition: Good - Referral to Home Health Primary Care Physician: PCP None - Discharge Diagnosis/Problem(s) (1) Delivery by section of full-term infant SNOMED Code(s): 679377565, 073097306 ICD Code: O82 - ENCOUNTER FOR DELIVERY WITHOUT INDICATION Status: Acute Priority: High Current Visit: Yes (2) hypertension SNOMED Code(s): 04986447, 14961567, 403736585 ICD Code: O16.5 - UNSPECIFIED MATERNAL HYPERTENSION, COMP THE PUERPERIUM Status: Acute Priority: High Current Visit: Yes (3) Gestational diabetes mellitus (GDM) affecting first SNOMED Code(s): 53095455177519 ICD Code: O24.419 - GESTATIONAL DIABETES MELLITUS IN , UNSP CONTROL Status: Acute Priority: High Current Visit: Yes (4) Lactating mother SNOMED Code(s): 358016819, 442983466 ICD Code: Z39.1 - ENCOUNTER FOR CARE AND EXAMINATION OF LACTATING MOTHER Status: Acute Priority: High Current Visit: Yes - Patient Instructions Diet: Usual Diet as Tolerated, Regular Diet as Tolerated, Drink 8-10+ Glasses/Day Activity: As Tolerated, No Strenuous Activities, Rest and Relax Today Driving: May Drive Today Showering/Bathing: May Shower Notify Provider of: Fever, Increased Pain, Swelling and Redness, Drainage, Nausea and/or Vomiting - Discharge Plan *PRESCRIPTION DRUG MONITORING PROGRAM REVIEWED*: No *COPY OF PRESCRIPTION DRUG MONITORING REPORT IN PATIENT CRISTY: No Tobacco Cessation Medication: Prescription Given Home Medications: Home Meds Pnv No.95/Ferrous Fum/Folic AC [ Vitamin Tablet] 1 tab PO DAILY 06/18/21 [History] Oxygen Therapy Mode: Room Air Patient Handouts: Baby Blues, Care After Delivery Referrals: Becky Granados MD [Physician] - 06/30/21 2:15 pm (1-week post-op appointment. 6-week check. 08/04/2021 @ 9:[address] Friedman.) - Discharge Summary/Plan Comment DC Time >30 min.: No Total # of Minutes for Discharge Time: sdf Discharge Summary/Plan Comment: Hemodynamically stable, afebrile. Independent with ADLs, pain well controlled. Ibuprofen prescription sent to pharmacy. Warning S/Ss, when to call for help discussed, no questions or concerns. F/U in office Monday06/28/2021 for BP check. F/U in office for incision check in 1 week, 6 weeks for visit or sooner if problem arise. Ibuprofen and iron Rx sent to [facility] via [employer]. Written Percocet Rx given to patient. - General Info Date of Service: 06/26/21 Admission Dx/Problem (Free Text: Patient Status Order with Admit Dx/Problem 06/24/21 05:33 Patient Status [ADT] Routine Admission Diagnosis/Problem Admission Diagnosis/Problem Subjective Update: Adelaida is a 31 yo current PPD2 S/P uncomplicated to term NBM. O neg with RhoGam indicated, administered 06/26/2021, RI, GBS neg. Patient has no complaints or concerns at this time. Patient is breast and bottle feeding well, resting comfortably in bed with in FOB arms. Patient reports she is eating, voiding, ambulating independently and without difficulty. Patient denies any problems or concerns at this time except mild-moderate intermittent uterine cramping relieved with Percocet and Ibuprofen. Patient reports scant vaginal bleeding with no clots. Patient verbalizes her readiness to be discharged home today. BPs elevated from 130s/90s to 160s/90s. Functional Status: Reports: Pain Controlled, Tolerating Diet, Ambulating, Urinating - Review of Systems General: Reports: No Symptoms HEENT: Reports: No Symptoms Pulmonary: Reports: No Symptoms Cardiovascular: Reports: No Symptoms Gastrointestinal: Reports: No Symptoms Genitourinary: Reports: No Symptoms Musculoskeletal: Reports: No Symptoms Skin: Reports: No Symptoms Neurological: Reports: No Symptoms Psychiatric: Reports: No Symptoms - Patient Data Vitals - Most Recent: Last Vital Signs Temp 98.4 F 06/26/21 10:18 Pulse 106 H 06/26/21 10:18 Resp 18 06/26/21 10:18 BP 142/72 H 06/26/21 10:58 Pulse Ox 97 06/26/21 08:33 Weight - Most Recent: 179 lb I&O - Last 24 hours: Intake & Output 06/25/21 06/26/21 06/26/21 22:59 06:59 14:59 Intake Total 2 Balance 2 Lab Results - Last 24 hrs: Laboratory Results - last 24 hr 06/24/21 Range/Units 05:25 Screen NEGATIVE (NEGATIVE) RhIG Candidate? YES Rhogam Indicated YES, BABY RH POS H Med Orders - Current: Current Medications Bisacodyl (Bisacodyl 10 Mg Supp) 10 mg RECTAL ONETIME PRN PRN Reason: Constipation Diphenhydramine HCl (Diphenhydramine 50 Mg/Ml Sdv) 12.5 mg IVPUSH Q2H PRN PRN Reason: Itching Diphenhydramine HCl (Diphenhydramine 50 Mg/Ml Sdv) 25 mg IVPUSH Q6H PRN PRN Reason: Itching or Nausea Docusate Sodium (Docusate Sodium 100 Mg Cap) 100 mg PO BID [facility] Last Admin: 06/26/21 08:35 Dose: 100 mg Documented by: Emollient Ointment (Lanolin 100% Cream 7 Gm Tube) 0 gm TOP ASDIRECTED PRN PRN Reason: Sore Nipples Ephedrine Sulfate (Ephedrine 50 Mg/Ml Sdv) 10 mg IVPUSH Q5M PRN PRN Reason: Hypotension Fentanyl (Fentanyl 100 Mcg/2 Ml Sdv) 50 mcg IVPUSH Q1H PRN PRN Reason: Pain (severe 7-10) Oxytocin/Sodium Chloride (Oxytocin 30 Unit/500 Ml-Ns) 30 unit in 500 mls @ 250 mls/hr IV TITRATE EILEEN Lactated Ringer's (Ringers, Lactated) 1,000 mls @ 500 mls/hr IV BOLUS [facility] Last Admin: 06/24/21 10:04 Dose: 150 mls/hr Documented by: Lactated Ringer's (Ringers, Lactated) 1,000 mls @ 125 mls/hr IV ASDIRECTED [facility] Last Admin: 06/24/21 15:55 Dose: 125 mls/hr Documented by: Oxytocin/Lactated Ringer's (Pitocin In Lr 30 Units/500 Ml) 30 unit in 500 mls @ 2 mls/hr IV TITRATE [facility]; Protocol Tranexamic Acid 1,000 mg/ (Sodium Chloride) 110 mls @ 660 mls/hr IV ONETIME PRN PRN Reason: Bleeding Ibuprofen (Ibuprofen 800 Mg Tab) 800 mg PO Q8H PRN PRN Reason: mild pain or fever Last Admin: 06/26/21 04:28 Dose: 800 mg Documented by: Methylergonovine Maleate (Methylergonovine 0.2 Mg/1 Ml Amp) 0.2 mg IM ONETIME PRN PRN Reason: Excessive Vaginal Bleeding Misoprostol (Misoprostol 200 Mcg Tab) 1,000 mcg RECTAL ONETIME PRN PRN Reason: excessive bleeding Nalbuphine HCl (Nalbuphine 10 Mg/1 Ml Vial) 5 mg IVPUSH ASDIRECTED PRN PRN Reason: Itching Ondansetron HCl (Ondansetron 4 Mg/2 Ml Sdv) 4 mg IVPUSH Q6H PRN PRN Reason: Nausea Ondansetron HCl (Ondansetron 4 Mg/2 Ml Sdv) 4 mg IVPUSH Q4H PRN PRN Reason: Nausea/Vomiting Last Admin: 06/24/21 21:02 Dose: 4 mg Documented by: Oxycodone/Acetaminophen (Acetaminophen/Oxycodone 325-5 Mg Tab) 2 tab PO Q6H PRN PRN Reason: Pain (moderate 4-6) Oxycodone/Acetaminophen (Acetaminophen/Oxycodone 325-5 Mg Tab) 1 tab PO Q4H PRN PRN Reason: Pain (severe 7-10) Last Admin: 06/26/21 10:14 Dose: 1 tab Documented by: Oxycodone/Acetaminophen (Acetaminophen/Oxycodone 325-5 Mg Tab) 2 tab PO Q4H PRN PRN Reason: Pain (severe 7-10) Oxytocin (Oxytocin 10 Units/1 Ml Sdv) 10 unit IM ASDIRECTED PRN PRN Reason: Excessive Vaginal Bleeding Sodium Chloride (Sodium Chloride 0.9% 10 Ml Syringe) 10 ml FLUSH ASDIRECTED PRN PRN Reason: Keep Vein Open Sodium Chloride (Sodium Chloride 0.9% 2.5 Ml Syringe) 2.5 ml FLUSH ASDIRECTED PRN PRN Reason: Keep Vein Open Sodium Chloride (Sodium Chloride 0.9% 10 Ml Sdv) 10 ml IV ASDIRECTED PRN PRN Reason: IV Use Discontinued Medications Cefazolin Sodium (Cefazolin 1 Gm Vial) Confirm Administered Dose 2 gm .ROUTE .STK-MED ONE Stop: 06/24/21 07:53 Cefazolin Sodium (Cefazolin 1 Gm Vial) Confirm Administered Dose 2 gm .ROUTE .STK-MED ONE Stop: 06/24/21 12:31 Citric Acid/Sodium Citrate (Citric Acid/Sodium Citrate Solution 30 Ml Cup) 30 ml PO ONETIME ONE Stop: 06/24/21 05:34 Fentanyl (Fentanyl 100 Mcg/2 Ml Sdv) Confirm Administered Dose 100 mcg .ROUTE .STK-MED ONE Stop: 06/24/21 07:32 Cefazolin Sodium/Dextrose 2 gm (/ Premix) 50 mls @ 100 mls/hr IV ONETIME ONE Stop: 06/24/21 06:02 Ketorolac Tromethamine (Ketorolac 30 Mg/Ml Sdv) Confirm Administered Dose 30 mg .ROUTE .STK-MED ONE Stop: 06/24/21 07:37 Ketorolac Tromethamine (Ketorolac 30 Mg/Ml Sdv) 30 mg IVPUSH Q6H [facility] Stop: 06/25/21 13:46 Ketorolac Tromethamine (Ketorolac 30 Mg/Ml Sdv) 30 mg IVPUSH Q6H [facility] Stop: 06/25/21 19:31 Last Admin: 06/25/21 22:38 Dose: Not Given Documented by: Miscellaneous Medication (Phenylephrine Hcl In 0.9% Nacl 1 Mg/10 Ml Syringe) Confirm Administered Dose 1 mg .ROUTE .STK-MED ONE Stop: 06/24/21 07:37 Morphine Sulfate (Morphine Pf 10 Mg/10 Ml Sdv) Confirm Administered Dose 10 mg .ROUTE .STK-MED ONE Stop: 06/24/21 07:33 Naloxone HCl (Naloxone 0.4 Mg/Ml Syringe) 0.1 mg IVPUSH ONETIME PRN PRN Reason: Respiratory Depression Stop: 06/25/21 11:44 Ondansetron HCl (Ondansetron 4 Mg/2 Ml Sdv) Confirm Administered Dose 4 mg .ROUTE .STK-MED ONE Stop: 06/24/21 07:37 Oxytocin (Oxytocin 10 Units/1 Ml Sdv) Confirm Administered Dose 30 unit .ROUTE .STK-MED ONE Stop: 06/24/21 07:37 Promethazine HCl (Promethazine 25 Mg/Ml Sdv) 12.5 mg IM ONETIME ONE Stop: 06/24/21 17:26 Last Admin: 06/24/21 18:15 Dose: 12.5 mg Documented by: - Exam General: Reports: Alert, Oriented, Cooperative, No Acute Distress HEENT: Reports: Pupils Equal, Pupils Reactive, Mucous Membr. Moist/[employer] Neck: Reports: Supple Lungs: Reports: Clear to Auscultation, Normal Respiratory Effort Cardiovascular: Reports: Regular Rate, Regular Rhythm GI/Abdominal Exam: Normal Bowel Sounds, Soft, Non-Tender, No Organomegaly, No Distention (Female) Exam: Normal External Exam, Enlarged Uterus, Vaginal Bleeding Rectal (Female) Exam: Deferred Back Exam: Reports: Normal Inspection, Full Range of Motion Extremities: Normal Inspection, Normal Range of Motion, Non-Tender, No Pedal Edema, Normal Capillary Refill Skin: Reports: Warm, Dry, Intact Wound/Incisions: Reports: Dressing Dry and Intact, No Drainage Neurological: Reports: No New Focal Deficit Psy/Mental Status: Reports: Alert, Normal Affect, Normal Mood
--- NOTE | 2021-07-01 14:23 | PCM.POSTAN ---
POST ANESTHESIA ASSESSMENT - MENTAL STATUS Mental Status: Alert, Oriented - VITAL SIGNS Vital Signs: Last Vital Signs Temp 98.4 F 06/26/21 10:18 Pulse 106 H 06/26/21 10:18 Resp 18 06/26/21 10:18 BP 142/72 H 06/26/21 10:58 Pulse Ox 97 06/26/21 11:09 - RESPIRATORY Respiratory Status: Respiratory Rate WNL, Airway Patent, O2 Saturation Stable - CARDIOVASCULAR CV Status: Pulse Rate WNL, Blood Pressure Stable - GASTROINTESTINAL GI Status: No Symptoms - POST OP HYDRATION Hydration Status: Adequate & Stable
--- NOTE | 2021-07-01 14:23 | PCM48HPAN ---
Post Anesthesia Note - EVALUATION WITHIN 48HRS OF ANESTHETIC Vital Signs in Normal Range: Yes Patient Participated in Evaluation: Yes Respiratory Function Stable: Yes Airway Patent: Yes Cardiovascular Function Stable: Yes Hydration Status Stable: Yes Pain Control Satisfactory: Yes Nausea and Vomiting Control Satisfactory: Yes Mental Status Recovered: Yes Vital Signs: Last Vital Signs Temp 98.4 F 06/26/21 10:18 Pulse 106 H 06/26/21 10:18 Resp 18 06/26/21 10:18 BP 142/72 H 06/26/21 10:58 Pulse Ox 97 06/26/21 11:09
== END 2021-06-26 13:25 | disposition home or self-care (01) | DRG 540 ==
LOC: MW.OB 05:01
PROVIDERS: ADMIT Obstetrics & Gynecology Obstetrics; ATTEND Obstetrics & Gynecology Obstetrics
PROC: 10D00Z1 Extraction of Products of Conception, Low, Open Approach (ICD-10-PCS; principal; 2021-06-24)
PROC: 3E0234Z Introduction of Serum, Toxoid and Vaccine into Muscle, Percutaneous Approach (ICD-10-PCS; 2021-06-26)
DX: O24.420 Gestational diabetes mellitus in childbirth, diet controlled (principal); O16.5 Unspecified maternal hypertension, complicating the puerperium; O26.893 Other specified pregnancy related conditions, third trimester; Z3A.39 39 weeks gestation of pregnancy; Z37.0 Single live birth; Q78.8 Other specified osteochondrodysplasias; Z67.41 Type O blood, Rh negative
CPT/HCPCS: 01961; 36415; 36430; 59025; 85014; 85018; 85027; 85460; 86592; 86850; 86870; 86900; 86901; A9270-GY; J0690; J1885; J2270; J2370; J2405; J2550; J2590; J2790; J3010; J7120

== ENCOUNTER 2021-12-24 01:00 | Emergency (ER) | payer BC ==
[2021-12-24] MEDS ORDERED: Ibuprofen 600 MG Tab PO ONE (01:26)
== END 2021-12-24 01:56 | disposition home or self-care (01) ==
LOC: MW.ED 01:00
DX: M25.531 Pain in right wrist (principal)
CPT/HCPCS: 73120; 99283; A9270; 99282